=== PATIENT | female | born 1960 | race Caucasian/White ===

== ENCOUNTER 2018-02-17 11:39 | Day surgery (SDC) | payer BC, OTHER ==
[2018-02-17 12:46] VITALS: BMI 27.2
[2018-02-17] MEDS ORDERED: PROPOFOL 20 ML ONE ×2 (13:23)
--- NOTE | 2018-02-17 14:22 | PROC ---
Endoscopy Procedure Endoscopy procedure completed. Please see scanned procedure report.
[2018-02-17 14:27] VITALS: TEMP 98.2
[2018-02-17 15:13] VITALS: BP 127/54; PULSE 52
--- NOTE | 2018-02-19 17:35 | PATH ---
Surgical Pathology Report Patient Name: EVERARDO CAICEDO [facility]. Rec. #: [id number] /Age/Gender: 1960 (Age: 57) / F Account: [id number] Location: [facility]ENDOSCOPY Taken: 02/17/2018 Received: 02/18/2018 Reported: 02/19/2018 Physicians: Enzo Mccartney M.D. Specimen(s) Received ASCENDING COLON POLYP Clinical History Screening colonoscopy Postoperative diagnosis: Ascending colon polyp Final Diagnosis ASCENDING COLON, POLYP, BIOPSY: TUBULAR ADENOMA. Electronically Signed Kellen Palacios M.D. Gross Description Received in formalin, labeled "polyp ascending colon" is a garcia, polypoid portion of soft tissue measuring 0.6 cm. in greatest dimension. The specimen is submitted in toto in one cassette. 02/18/201802/18/2018
== END 2018-02-17 15:16 | disposition home or self-care (01) ==
LOC: JASU-ENDO 11:39
PROVIDERS: ATTEND Internal Medicine Gastroenterology
PROC: 3E0H8GC Introduction of Other Therapeutic Substance into Lower GI, Via Natural or Artificial Opening Endoscopic (ICD-10-PCS; 2018-02-17)
PROC: 0DBK8ZX Excision of Ascending Colon, Via Natural or Artificial Opening Endoscopic, Diagnostic (ICD-10-PCS; principal; 2018-02-17 13:00)
DX: Z12.11 Encounter for screening for malignant neoplasm of colon (principal); K63.5 Polyp of colon
CPT/HCPCS: 88305-TC

== ENCOUNTER 2024-05-11 11:43 | Emergency (ER) | payer BC, OTHER ==
[2024-05-11 12:04] VITALS: BP 125/88; PULSE 66; RESP 20; TEMP 98.3; BMI 30.1
== END 2024-05-11 14:07 | disposition home or self-care (01) ==
LOC: FER 11:43
PROC: 0HQNXZZ Repair Left Foot Skin, External Approach (ICD-10-PCS; principal; 2024-05-11)
PROC: 2W3RX1Z Immobilization of Left Lower Leg using Splint (ICD-10-PCS; 2024-05-11)
DX: S91.112A Laceration without foreign body of left great toe without damage to nail, initial encounter (principal); W31.2XXA Contact with powered woodworking and forming machines, initial encounter; Y93.H2 Activity, gardening and landscaping
CPT/HCPCS: 73660-TC-LT-FY; 99283-25